=== PATIENT | male | born 2000 | race Caucasian/White ===

== ENCOUNTER 2024-12-10 09:46 | Day surgery (SDC) | payer OTHER ==
[~2024-12-10] VITALS: Ht 167.6 cm; Wt 80.3 kg
[2024-12-10] MEDS ORDERED: dexAMETHasone 10MG/1ML VIAL PRES.FREE PN ONE (10:20)
[2024-12-10] MEDS ORDERED: LIDOCAINE 1% SDV 5ML VIAL PN ONE (10:20)
[2024-12-10] MEDS ORDERED: ROPIvacaine 0.5% 30ML VIAL PN ONE (10:20)
[2024-12-10] MEDS ORDERED: NS (Normal Saline) 0.9% 1,000 ML IV SCH ×2 (10:35→16:30)
[2024-12-10] MEDS: fentaNYL 100 MCG/2 ML INJECTION IV PRN (11:01)
[2024-12-10] MEDS: MIDAZOLAM INJ 2MG/2ML VIAL IV PRN (11:01)
[2024-12-10] MEDS ORDERED: LIDOCAINE 2% 100MG/5ML SDV (FOR ANES.) As Ordered ONE (11:25)
[2024-12-10] MEDS ORDERED: ONDANSETRON 4MG 2ML VIAL As Ordered ONE (11:25)
[2024-12-10] MEDS ORDERED: fentaNYL 100 MCG/2 ML INJECTION As Ordered ONE (11:25)
[2024-12-10] MEDS ORDERED: MIDAZOLAM INJ 2MG/2ML VIAL As Ordered ONE (11:25)
[2024-12-10] MEDS ORDERED: propofoL 200 MG/20 ML VIAL As Ordered ONE (11:25)
[2024-12-10] MEDS: ceFAZolin SOD 2 GM in IV 1 EA IV ONE (12:01)
[2024-12-10] MEDS: TRANEXAMIC ACID 100 MG/ML 10ML VIAL As Ordered ONE (12:15)
[2024-12-10] MEDS: TRANEXAMIC ACID 100 MG/ML 10ML VIAL IV ONE (12:15)
[2024-12-10] MEDS ORDERED: ACETAMINOPHEN 1000MG/100ML IV BAG As Ordered ONE (12:23)
[2024-12-10] MEDS ORDERED: LABETALOL 100MG/20ML VIAL As Ordered ONE (14:07)
[2024-12-10] MEDS: EPINEPHrine 1MG/ML INJ 30ML MD-VIAL As Ordered ONE (15:20)
[2024-12-10] MEDS ORDERED: KETOROLAC 60MG 2ML VIAL As Ordered ONE (15:32)
[2024-12-10] MEDS: HYDROMORPHONE HCL 0.5 MG/ 0.5 ML SYRINGE IV PRN (16:44)
[2024-12-10] MEDS: oxyCODONE 5MG TAB PO PRN (16:45)
[2024-12-10] MEDS: ONDANSETRON 4MG 2ML VIAL IV PRN (16:45)
[2024-12-10 17:46] VITALS: BP 145/77; TEMP 97.9; O2SAT 98
== END 2024-12-10 17:48 | disposition home or self-care (01) ==
LOC: M SDC 09:46
PROVIDERS: ATTEND Orthopaedic Surgery
DX: M23.612 Other spontaneous disruption of anterior cruciate ligament of left knee (principal); M25.562 Pain in left knee; Z88.0 Allergy status to penicillin
CPT/HCPCS: 29888; 64447; 73560; C1713; J0131; J0171; J0690; J1100; J1171; J1885; J1920; J2250; J2405; J3010